=== PATIENT | female | born 1990 | race Caucasian/White ===

== ENCOUNTER 2016-10-27 09:31 | Emergency (ER) | payer OTHER ==
[~2016-10-27] VITALS: Ht 175.3 cm; Wt 72.6 kg
[~2016-10-27 09:31] MED LIST: ACET50TA GT; PERC7.5T12 PO; PERCOCET FT
[2016-10-27 09:32] VITALS: BP 121/80
[2016-10-27] MEDS ORDERED: [UNRECOGNIZED DRUG - CODE] PO (09:46)
[2016-10-27] MEDS ORDERED: IBUP600T26 PO (10:34)
== END 2016-10-27 10:48 | disposition home or self-care (01) ==
LOC: M ED 10:19
DX: S62.306A Unspecified fracture of fifth metacarpal bone, right hand, initial encounter for closed fracture (principal); Y04.0XXA Assault by unarmed brawl or fight, initial encounter; Y92.019 Unspecified place in single-family (private) house as the place of occurrence of the external cause; Y93.9 Activity, unspecified; Y99.9 Unspecified external cause status; Z87.891 Personal history of nicotine dependence

== ENCOUNTER → 2018-02-03 | Outpatient (CLI) | payer OTHER ==
[2018-02-03 12:22] LABS: BASO % 0.2 % (0.0-1.0); EOS # 0.1 10^3/uL (0.0-0.50); EOS % 0.8 % (0.0-3.0); HEMATOCRIT 38.2 % (36.0-47.0); IMMATURE GRANULOCYTE % 0.3 % (0-3.0); LYMPH # 1.2 10^3/uL (1.5-6.5); LYMPH % 13.5 % (24.0-44.0); MEAN CORPUSCULAR VOLUME 91.2 fl (80.0-96.0); MONO # 0.6 10^3/uL (0.0-0.8); MONO % 6.5 % (0.0-5.0); NEUTROPHILS # 7.2 10^3/uL (1.8-7.7); NEUTROPHILS % 78.7 % (36.0-66.0); PLATELET COUNT, AUTOMATED 274 10^3/uL (150-450); RED BLOOD COUNT 4.19 10^6/uL (4.00-5.40); RED CELL DISTRIBUTION WIDTH 12.3 % (11.5-14.5); WHITE BLOOD COUNT 9.2 10^3/uL (4.0-10.0)
[2018-02-03 13:56] LABS: CHLAMYDIA DNA AMPLIFICATION NEGATIVE (NEGATIVE); GC DNA AMPLIFICATION NEGATIVE (NEGATIVE)
[2018-02-04 10:56] LABS: HBsAg Prenatal NEGATIVE (NEGATIVE); HIV 1&2 SCREEN CENTAUR NEGATIVE (NEGATIVE); RUBELLA IgG QUALITATIVE IMMUNE (IMMUNE)
[2018-02-04 10:56] LABS: HEPATITIS C VIRUS ABY INDEX 0.1 INDEX (<0.8)
== END ==
LOC: M LAB 10:39
DX: Z34.81 Encounter for supervision of other normal pregnancy, first trimester (principal); Z3A.08 8 weeks gestation of pregnancy
CPT/HCPCS: 86762

== ENCOUNTER → 2018-02-13 | Outpatient (REF) | payer OTHER ==
[2018-02-13 22:32] LABS: INFLUENZA A AMPLIFICATION POSITIVE (NEGATIVE); INFLUENZA B AMPLIFICATION NEGATIVE (NEGATIVE)
== END ==
LOC: M LAB REF 21:21
DX: J02.9 Acute pharyngitis, unspecified (principal)

== ENCOUNTER → 2018-03-03 | Outpatient (REF) | payer OTHER | LOC: M LAB REF 13:24 | DX: Z34.81 Encounter for supervision of other normal pregnancy, first trimester (principal); Z3A.00 Weeks of gestation of pregnancy not specified ==

== ENCOUNTER → 2018-04-16 | Outpatient (CLI) | payer MEDICAID, OTHER | LOC: M RAD 15:25 | DX: Z34.82 Encounter for supervision of other normal pregnancy, second trimester (principal); Z3A.19 19 weeks gestation of pregnancy | CPT/HCPCS: 76811 ==

== ENCOUNTER → 2018-05-27 | Outpatient (REF) | payer OTHER ==
[~2018-05-27] MED LIST changes: +IBUP-1022 PO; +[UNRECOGNIZED DRUG - CODE] PO
[2018-05-27 13:38] LABS: INFLUENZA A AMPLIFICATION NEGATIVE (NEGATIVE); INFLUENZA B AMPLIFICATION NEGATIVE (NEGATIVE)
== END ==
LOC: M LAB REF 12:33
PROVIDERS: ATTEND Physician Assistant
DX: R50.9 Fever, unspecified (principal)

== ENCOUNTER → 2018-06-02 | Outpatient (CLI) | payer OTHER ==
[2018-06-02 12:48] LABS: HEMATOCRIT 34.2 % (36.0-47.0); HEMOGLOBIN 11.3 g/dl (12.0-15.5); MEAN CORPUSCULAR HEMOGLOBIN 31.3 pg (27.0-33.0); MEAN CORPUSCULAR VOLUME 94.7 fl (80.0-96.0); PLATELET COUNT, AUTOMATED 239 10^3/uL (150-450); RED BLOOD COUNT 3.61 10^6/uL (4.00-5.40); WHITE BLOOD COUNT 9.2 10^3/uL (4.0-10.0)
== END ==
LOC: M LAB 11:03
PROVIDERS: ATTEND Advanced Practice Midwife
DX: Z36.89 Encounter for other specified antenatal screening (principal)

== ENCOUNTER → 2018-06-03 | Outpatient (CLI) | payer MEDICAID, OTHER ==
--- NOTE | 2018-06-04 01:44 | REP ---
Clinical: Anatomical evaluation. Comparison: 04/16/2018 . Findings: Examination demonstrates a single live intrauterine in breech presentation. motion is identified by technologist. Placenta is noted anterior and grade grade 1 without evidence for placenta previa or abruption. Amniotic fluid volume is normal. Cervix measures 4.3 cm in length and appears closed. No evidence for nuchal cord. Gestational age by LMP 25 weeks 4 days with FRAN 09/12/2018 . Gestational age by current measurements 25 weeks 5-day with FRAN is 09/11/2018 . FHR equals 141 beats per minute. Estimated weight 853 grams ( 48th percentile). Anatomical assessment demonstrates normal structures including cranium, choroid plexus, cavum, cerebellum/posterior fossa, facial features, lungs, four-chamber heart/ventricular outflow tracts, diaphragm, stomach, cord insertion/three-vessel cord, kidneys/bladder, spine, and lower extremities. Impression: 1. Single live intrauterine in breech presentation demonstrating appropriate interval growth. 2. In conjunction with prior examination anatomical assessment is complete and normal. Electronically Signed by Faheem Melton MD 06/04/2018 01:37 A
== END ==
LOC: M RAD 15:27
PROVIDERS: ATTEND Advanced Practice Midwife
DX: O32.1XX0 Maternal care for breech presentation, not applicable or unspecified (principal); Z36.89 Encounter for other specified antenatal screening; Z3A.25 25 weeks gestation of pregnancy

== ENCOUNTER → 2018-06-29 | Outpatient (CLI) | payer OTHER | LOC: M LAB 08:47 | PROVIDERS: ATTEND Advanced Practice Midwife | DX: Z34.82 Encounter for supervision of other normal pregnancy, second trimester (principal) ==

== ENCOUNTER → 2018-08-11 | Outpatient (REF) | payer OTHER | LOC: M LAB REF 17:06 | PROVIDERS: ATTEND Advanced Practice Midwife | DX: Z34.83 Encounter for supervision of other normal pregnancy, third trimester (principal); Z3A.00 Weeks of gestation of pregnancy not specified ==

== ENCOUNTER 2018-09-04 05:33 | Inpatient (IN) | payer OTHER ==
[~2018-09-04] VITALS: Ht 175.3 cm; Wt 81.0 kg
[2018-09-04] VITALS (7 sets, daily range): BP systolic 105–121; BP diastolic 54–77
[~2018-09-04 05:33] MED LIST changes: -ACET50TA GT; +ASPI1TAB77 PO; +MAPA500T17 GT; +OXYC1TAB23 FT; -PERCOCET FT; -[UNRECOGNIZED DRUG - CODE] PO
[2018-09-04] MEDS ORDERED: BICITRA 30ML SOLN UDC PO ONE (06:00)
[2018-09-04] MEDS ORDERED: LR 1,000 ML IV ONE (06:00)
[2018-09-04 06:46] LABS: HEMATOCRIT 31.2 % (36.0-47.0); HEMOGLOBIN 10.1 g/dl (12.0-15.5); MEAN CORPUSCULAR HEMOGLOBIN 27.1 pg (27.0-33.0); MEAN CORPUSCULAR HGB CONC 32.4 g/dl (32.0-36.5); MEAN CORPUSCULAR VOLUME 83.6 fl (80.0-96.0); PLATELET COUNT, AUTOMATED 263 10^3/uL (150-450); RED BLOOD COUNT 3.73 10^6/uL (4.00-5.40); WHITE BLOOD COUNT 8.8 10^3/uL (4.0-10.0)
[2018-09-04] MEDS ORDERED: LR 1,000 ML IV SCH ×2 (07:00→08:54)
[2018-09-04] MEDS ORDERED: ONDANSETRON 4MG/2ML VIAL (J2405) As Ordered ONE (07:16)
[2018-09-04] MEDS ORDERED: MORPHINE PRES-FREE INJ 10 MG/10 ML VIAL (J2274) As Ordered ONE (07:16)
[2018-09-04] MEDS ORDERED: dexameTHASONE 4 MG/ML 1ML VIAL (J1100) As Ordered ONE (07:16)
[2018-09-04] MEDS ORDERED: KETOROLAC 60 MG/2 ML VIAL (J1885) As Ordered ONE (07:16)
[2018-09-04] MEDS ORDERED: OXYTOCIN INJ 10 UNITS/ML VIAL (J2590) As Ordered ONE (07:16)
[2018-09-04] MEDS ORDERED: NALBUPHINE HCL 10 MG/ML AMP (J2300) IV PRN ×2 (07:51→09:15)
[2018-09-04] MEDS ORDERED: METOCLOPRAMIDE INJ 10MG/2ML VIAL (J2765) IV PRN (07:51)
[2018-09-04] MEDS ORDERED: diphenhydrAMINE INJ 50MG/ML VIAL (J1200) IV PRN (07:51)
[2018-09-04] MEDS ORDERED: ONDANSETRON 4MG/2ML VIAL (J2405) IV PRN ×3 (07:51→09:15)
[2018-09-04] MEDS ORDERED: NALOXONE INJ 0.4 MG/1 ML VIAL (J2310) IV PRN ×2 (07:51)
[2018-09-04] MEDS ORDERED: BUPIVACAINE/DEXTROSE 0.75% 2 ML AMP As Ordered ONE (08:07)
[2018-09-04] MEDS ORDERED: ePHEDrine SULFATE 25 MG/5 ML(5MG/ML) SYRINGE As Ordered ONE (08:35)
[2018-09-04] MEDS ORDERED: PHENYLephrine HCL 500 MCG/5 ML (100MCG/ML) SYRINGE (J2370) As Ordered ONE (08:35)
[2018-09-04] MEDS ORDERED: OXYTOCIN DRIP 30 UNITS in APPROPRIATE DILUENT 1 EA IV SCH (08:54)
--- NOTE | 2018-09-04 08:59 | NUR ---
Operative Note Date of procedure: 09/04/2018 Procedure: Repeat low-transverse section Anesthesia: Spinal with Duramorph Preoperative diagnosis: 39+ weeks gestation, history of prior low transverse section Postoperative diagnosis: Same as preoperative Indication: Prior low transverse section, declining trial of labor after Primary surgeon: Raimundo Allen D.O., Julia Reyes Cooperer: Francis Mcqueen MD FACOG (essential for surgical site exposure and assistance with delivery through the hysterotomy) Estimated blood loss:500 ml IV fluids administered: 1500 ml crystalloid Drains: Stout catheter. Urine output: 150 ml data: Apgars 9 and 9. Birthweight 4040g, 8lbs 15oz.. Preoperative/prophylactic antibiotics: Ancef 2 g IV (given within 30 minutes prior to surgical start time). Intraoperative findings: Normal uterus and bilateral adnexa/ovaries. Cephalic presentation. Specimen(s): none Procedure: The patient was counseled and consented on the risks, benefits, indications and alternatives of the procedure. Informed consent was obtained and placed in the c cat. She was taken to the operating room with an IV running. She was placed on the operating table. Spinal anesthesia was administered without any difficulty and found to be adequate. She was placed in the dorsal supine position with a leftward tilt. Sequential compression devices were placed on the lower extremities. A Stout catheter was placed under sterile conditions. She was sterilely prepped and draped. A surgical timeout was performed per protocol. Spinal anesthesia was again found to be adequate. Using the 10 blade a Pfannenstiel incision was performed. The 10 blade was used to dissect down to the level of the rectus sheath fascia. The rectus sheath fas emma was incised at the midline, and the fascial incision was extended with Veras scissors. Amy clamps were used to grasp the superior and inferior aspect of the fascial incision and the rectus muscle bellies were dissected off sharply and bluntly. The midline was identified and the rectus muscle bellies were manually . The peritoneum was identified and clamped with hemostats and elevated. The peritoneum was then incised with Metzenbaum scissors. Entry into the intraperitoneal cavity was achieved. The peritoneal opening was extended with manual stretch . There was good visualization of both the bladder and the lower uterine segment. The Mobius retractor was placed. The vesicouterine peritoneum was dissected with Metzenbaum scissors and blunt dissection. A low transverse uterine incision was made with a new 10 blade. The hysterotomy was extended with manual stretch. The amniotic sac was protruding and then artificially ruptured. Clear amniotic fluid was noted. The baby's head delivered through the hysterotomy with ease. The remainder of the body delivered with ease. The cord was doubly clamped and cut and the baby was handed off to awaiting care. See data above. Cord blood was obtained. The placenta was manually removed and noted to be fully intact. The uterus was exteriorized. The intrauterine cavity was cleared of all clot and debris with a laparotomy sponge. The hysterotomy was closed with 0 Vicryl in running, locked fashion. A second imbricating closure was performed over the initial layer closure using 0 Vicryl. The hysterotomy was noted to be hemostatic. The posterior cul-de-sac was irrigated and cleared of all clot and debris. The uterus was replaced back into the abdomen. The paracolic gutters were cleared of all clot and debris with damp laparotomy sponges. The hysterotomy is reinspected and noted to be hemostatic. Sponge, needle and instrument counts were correct. The peritoneum was closed with 3-0 Vicryl in running fashion. The rectus muscle bellies were reapproximated with 3-0 Vicryl with a series of interrupted sutures. The rectus muscle bellies were noted to be hemostatic. The fascia was closed with 0 Vicryl in running fashion. Sponge, needle and instrument counts were again correct. The subcutaneous layer was irrigated. Small subcutaneous bleeders were cauterized with Bovie. The subcutaneous layer was reapproximated with 3-0 Vicryl in running fashion. The skin was closed with 3-0 Monocryl in subcuticular fashion. A bandage was placed over the closed incision. The final sponge, instrument and needle count was correct. She tolerated the entire procedure very well. She was transferred to the PACU in good and stable condition. Dr. Raimundo Allen D.O., F.Yudy.[email or web address].Victor Manuel.G
[2018-09-04] MEDS: PRENATAL VITAMINS CHEWABLE TABLET PO SCH (09:00)
[2018-09-04] MEDS ORDERED: PERCOCET 5MG/325MG TAB PO PRN (09:00)
[2018-09-04] MEDS ORDERED: RHOGAM 300 MCG (1500 IU) INJ (J2790) IM SCH (09:00)
[2018-09-04] MEDS ORDERED: PROMETHAZINE 25 MG TAB PO PRN (09:00)
[2018-09-04] MEDS: DOCUSATE SODIUM 100 MG CAP PO SCH ×2 (09:00→21:28)
[2018-09-04] MEDS ORDERED: MEASLES,MUMPS,RUBELLA VACCINE INJ (MMR-II) (90707) SC SCH (09:00)
[2018-09-04] MEDS ORDERED: IBUP80TA PO (09:01)
[2018-09-04] MEDS ORDERED: PERCOCET PO (09:01)
[2018-09-04] MEDS ORDERED: OXYTOCIN 30 UNITS IN 0.9% NaCl 500ML IV BAG (J2590) As Ordered ONE (09:14)
[2018-09-04] MEDS ORDERED: fentaNYL 100 MCG/2 ML INJECTION (J3010) IV PRN (09:15)
[2018-09-04 09:38] LABS: AMPHETAMINES URINE REFLEX NEGATIVE (NEGATIVE); BARBITURATES URINE REFLEX NEGATIVE (NEGATIVE); BENZODIAZEPINES URINE REFLEX NEGATIVE (NEGATIVE); CANNABINOIDS URINE REFLEX NEGATIVE (NEGATIVE); COCAINE METABOLITE URINE REFLE NEGATIVE (NEGATIVE); METHADONE URINE REFLEX NEGATIVE (NEGATIVE); OPIATES URINE REFLEX NEGATIVE (NEGATIVE); PHENCYCLIDINE URINE REFLEX NEGATIVE (NEGATIVE)
[2018-09-04] MEDS: KETOROLAC 30 MG/ML VIAL (J1885) IV SCH ×2 (14:59→21:28)
[2018-09-05] MEDS: KETOROLAC 30 MG/ML VIAL (J1885) IV SCH (02:54)
[2018-09-05 02:57] VITALS: BP 110/56
[2018-09-05 06:00] VITALS: BP 91/52
--- NOTE | 2018-09-05 07:01 | IPNPDOC ---
Text Note Date of Service The patient was seen on 09/05/18. NOTE PO #1 Feels well. Adequate pain management. Voiding VSS, afebrile, normotensive Fundus firm, NT Dressing intact Lochia rubra light without odor Routine care. Anticipate D/C in am VS,Fishbone, I+O VS, Fishbone, I+O Vital Signs Date Time Temp Pulse Resp B/P (MAP) Pulse Ox O2 Delivery O2 Flow Rate FiO2 09/05/18 06:00 97.4 75 17 91/52 (65) 09/05/18 02:57 98 I&O- Last 24 Hours up to 6 AM 09/05/18 06:00 Intake Total 2150 ml Output Total 1950 ml Balance 200 ml Shalini Olivares CNM Sep 05, 2018 07:01
[2018-09-05 07:21] LABS: HEMATOCRIT 25.3 % (36.0-47.0); MEAN CORPUSCULAR HEMOGLOBIN 27.3 pg (27.0-33.0); MEAN CORPUSCULAR VOLUME 85.2 fl (80.0-96.0); PLATELET COUNT, AUTOMATED 208 10^3/uL (150-450); RED BLOOD COUNT 2.97 10^6/uL (4.00-5.40); WHITE BLOOD COUNT 11.8 10^3/uL (4.0-10.0)
[2018-09-05 08:18] LABS: HEMOGLOBIN 8.1 g/dl (12.0-15.5)
[2018-09-05] MEDS: DOCUSATE SODIUM 100 MG CAP PO SCH ×2 (09:31→20:46)
[2018-09-05] MEDS: PRENATAL VITAMINS CHEWABLE TABLET PO SCH (09:31)
[2018-09-05] MEDS: PERCOCET 5MG/325MG TAB PO PRN ×3 (09:32→18:52)
[2018-09-05 10:25] VITALS: BP 117/68
[2018-09-05] MEDS: IBUPROFEN 800 MG TAB PO SCH ×2 (11:34→18:53)
[2018-09-05 14:20] VITALS: BP 110/61
[2018-09-05 21:58] VITALS: BP 97/54
[2018-09-06 01:50] VITALS: BP 93/50
[2018-09-06] MEDS: IBUPROFEN 800 MG TAB PO SCH ×2 (03:26→11:41)
[2018-09-06 05:58] VITALS: BP 99/54
[2018-09-06] MEDS ORDERED: COLA100C5 PO (08:15)
[2018-09-06] MEDS: PRENATAL VITAMINS CHEWABLE TABLET PO SCH (08:30)
[2018-09-06] MEDS: PERCOCET 5MG/325MG TAB PO PRN (08:31)
[2018-09-06] MEDS: DOCUSATE SODIUM 100 MG CAP PO SCH (08:31)
--- NOTE | 2018-09-06 09:58 | NUR ---
Discharge Summary Date of admission: 09/04/18 Date of discharge: 09/06/18 Admitting diagnosis: 39+1 weeks, h/o LTCS x 2, declining TOLAC Discharge diagnosis: Status post elective repeat low transverse section. Single, liveborn delivered via . Discharge Summary: 28 year-old G2 now P2. She was admitted on 09/04/18 at 39+ weeks EGA for a scheduled elective repeat low transverse section. The delivery was uncomplicated. The patient's intraoperative and postoperative courses were uncomplicated. By postoperative day #2, the patient was meeting all discharge criteria. Her pain was well controlled on oral pain meds. She was ambulating without assistance, voiding spontaneously, tolerating a regular diet, and her lochia/bleeding was minimal. Physical exam on date of discharge: Vitals: normotensive, normal HR, afebrile Heart: regular rate and rhythm with no murmurs, gallops, rubs. Lungs: clear to auscultation bilaterally, no wheezes, crackles, rales, ronchi Abd: soft, non-distended, appropriately tender. Normoactive bowel sounds. Incision: clean, dry, intact without surrounding erythema or induration. Ext: non-edematous, non-tender, negative Jose Antonio's sign bilaterally Preoperative Hgb/Hct: 10.1/31.2 Postoperative Hgb/Hct: 8.1/25.3 Assessment/Plan: 28 year-old G2 now P2 status post repeat low transverse delivery on 09/04/18 now postoperative day #2. Hemodynamically stable, afebrile, with good pain control. Meeting all discharge criteria. -Routine infectious, fever, pain, and bleeding precautions reviewed -Surgical wound/incisional care / precautions reviewed. -Discharge medications: Percocet, Motrin, Colace. -Outpatient follow up in 1-2 weeks for a routine incision / postoperative check. Dr. Raimundo Allen, DO, FACOG
== END 2018-09-06 12:00 | disposition home or self-care (01) | DRG 540 ==
LOC: M LDI 05:33 → M OBS 10:43
PROVIDERS: ADMIT Obstetrics & Gynecology; ATTEND Obstetrics & Gynecology
PROC: 10D00Z1 Extraction of Products of Conception, Low, Open Approach (ICD-10-PCS; principal; 2018-09-04 07:30)
DX: O34.211 Maternal care for low transverse scar from previous cesarean delivery (principal); Z37.0 Single live birth; Z3A.39 39 weeks gestation of pregnancy

== ENCOUNTER → 2018-11-16 | Outpatient (CLI) | payer OTHER ==
[~2018-11-16] MED LIST changes: +COLA100C5 PO; +IBUP80TA PO; +KETO10TAB PO; +PERCOCET PO
--- NOTE | 2018-11-16 17:11 | REP ---
THYROID ULTRASOUND: Real-time sonographic evaluation of the thyroid performed. Both lobes are somewhat enlarged, right lobe measuring 5.8 x 1.6 x 1.9 cm and left lobe 5.9 x 3.0 x 2.5 cm. Dominant palpable lump on the left corresponds to a cyst in the mid aspect of the left lobe with areas of irregular wall thickening. Contents are anechoic and the cyst measures 3.4 x 2.8 x 2.4 cm. Adjacent smaller cyst measures 1.2 x 0.6 x 0.7 cm. A solid nodule in the upper pole measures 5 x 3 x 4 mm and lower pole 6 x 4 x 5 mm. On the right, a solid nodule in the upper pole measures 1.1 x 0.4 x 0.7 cm and another more inferiorly measures 9 x 4 x 6 mm. There is a cyst in the right lobe measuring 1.5 x 1.0 x 1.1 cm. IMPRESSION: Palpable lump on the left corresponds to a cyst in the mid aspect of the left lobe of the thyroid with areas of wall thickening, maximum diameter is 3.4 cm. There are other smaller cysts and nodules bilaterally as discussed above. Electronically Signed by Mike Greene MD 11/17/2018 11:41 A
== END ==
LOC: M RAD 16:19
PROVIDERS: ATTEND Physician Assistant Medical
DX: R22.9 Localized swelling, mass and lump, unspecified (principal)

== ENCOUNTER → 2018-11-25 | Outpatient (CLI) | payer OTHER ==
[~2018-11-25] MED LIST changes: -KETO10TAB PO
[2018-11-25 15:35] LABS: FREE THYROXINE INDEX 3.7 % (1.3-4.8); THYROID STIMULATING HORMONE 1.56 uIU/ML (0.358-3.740); THYROXINE (T4) 12.4 UG/DL (4.5-12.0)
== END ==
LOC: M LAB 14:33
PROVIDERS: ATTEND Otolaryngology
DX: E04.9 Nontoxic goiter, unspecified (principal)

== ENCOUNTER → 2018-12-18 | Outpatient (REF) | payer OTHER | LOC: M LAB REF 13:55 | PROVIDERS: ATTEND Otolaryngology | DX: E04.9 Nontoxic goiter, unspecified (principal) ==

== ENCOUNTER 2019-02-21 08:34 | Emergency (ER) | payer OTHER ==
[~2019-02-21] VITALS: Ht 175.3 cm; Wt 72.1 kg
[2019-02-21 08:35] VITALS: BP 110/77
[2019-02-21] MEDS ORDERED: KETOROLAC 60 MG/2 ML VIAL (J1885) IM ONE (09:30)
[2019-02-21] MEDS ORDERED: ACETAMINOPHEN 325 MG TAB PO ONE (09:30)
--- NOTE | 2019-02-21 10:01 | REP ---
Right ankle four views : There is no fracture or dislocation. Mineralization and joint spaces are normal. There are no calcifications or foreign bodies. Impression: Negative right ankle . Electronically Signed by Mike Farr MD 02/21/2019 09:52 A
[2019-02-21] MEDS ORDERED: KETO10TAB PO (10:07)
== END 2019-02-21 10:15 | disposition home or self-care (01) ==
LOC: M ED 08:34
DX: S93.411A Sprain of calcaneofibular ligament of right ankle, initial encounter (principal); X50.0XXA Overexertion from strenuous movement or load, initial encounter; Y93.41 Activity, dancing; Y92.511 Restaurant or cafe as the place of occurrence of the external cause
CPT/HCPCS: 73610; 96372; 99284; J1885

== ENCOUNTER → 2019-02-22 | Outpatient (REF) | payer OTHER ==
[~2019-02-22] MED LIST changes: +KETO10TAB PO
== END ==
LOC: M LAB REF 17:37
PROVIDERS: ATTEND Obstetrics & Gynecology
DX: Z12.4 Encounter for screening for malignant neoplasm of cervix (principal)

== ENCOUNTER → 2019-08-06 | Outpatient (REF) | payer OTHER ==
[2019-08-06 19:02] LABS: INFLUENZA A AMPLIFICATION NEGATIVE (NEGATIVE); INFLUENZA B AMPLIFICATION NEGATIVE (NEGATIVE)
== END ==
LOC: M LAB REF 18:22
PROVIDERS: ATTEND Physician Assistant
DX: J11.1 Influenza due to unidentified influenza virus with other respiratory manifestations (principal)

== ENCOUNTER → 2020-05-14 | Outpatient (CLI) | payer OTHER ==
[2020-05-14 12:29] LABS: BASO % 0.3 % (0.0-1.0); EOS # 0.1 10^3/uL (0.0-0.5); EOS % 0.9 % (0.0-3.0); HEMOGLOBIN 11.9 g/dl (12.0-15.5); LYMPH # 1.5 10^3/uL (1.5-5.0); LYMPH % 19.4 % (24.0-44.0); MEAN CORPUSCULAR HEMOGLOBIN 28.6 pg (27.0-33.0); MEAN CORPUSCULAR HGB CONC 32.2 g/dl (32.0-36.5); MEAN CORPUSCULAR VOLUME 88.9 fl (80.0-96.0); MONO # 0.6 10^3/uL (0.0-0.8); MONO % 7.5 % (0.0-5.0); NEUTROPHILS # 5.7 10^3/uL (1.5-8.5); NEUTROPHILS % 71.4 % (36.0-66.0); PLATELET COUNT, AUTOMATED 244 10^3/uL (150-450); RED BLOOD COUNT 4.16 10^6/uL (4.00-5.40)
[2020-05-14 13:57] LABS: CHLAMYDIA DNA AMPLIFICATION NEGATIVE (NEGATIVE); GC DNA AMPLIFICATION NEGATIVE (NEGATIVE)
[2020-05-15 10:42] LABS: HEPATITIS C VIRUS ABY INDEX 0.2 INDEX (<0.8); HIV 1&2 SCREEN CENTAUR NEGATIVE (NEGATIVE)
== END ==
LOC: M LAB 11:38
PROVIDERS: ATTEND Obstetrics & Gynecology
DX: O34.211 Maternal care for low transverse scar from previous cesarean delivery (principal)

== ENCOUNTER → 2020-07-03 | Outpatient (REF) | payer OTHER | LOC: M SFHCWAGY 15:14 | PROVIDERS: ATTEND Advanced Practice Midwife | DX: R30.0 Dysuria (principal) ==

== ENCOUNTER → 2020-08-08 | Outpatient (REF) | payer OTHER ==
[2020-08-08 14:15] LABS: HEMATOCRIT 33.4 % (36.0-47.0); HEMOGLOBIN 10.7 g/dl (12.0-15.5); MEAN CORPUSCULAR HEMOGLOBIN 29.2 pg (27.0-33.0); MEAN CORPUSCULAR VOLUME 91.3 fl (80.0-96.0); PLATELET COUNT, AUTOMATED 248 10^3/uL (150-450); RED BLOOD COUNT 3.66 10^6/uL (4.00-5.40); WHITE BLOOD COUNT 9.4 10^3/uL (4.0-10.0)
== END ==
LOC: M PLALAB 10:35
PROVIDERS: ATTEND Advanced Practice Midwife
DX: Z36.89 Encounter for other specified antenatal screening (principal); Z3A.23 23 weeks gestation of pregnancy

== ENCOUNTER → 2020-10-06 | Outpatient (REF) | payer OTHER ==
[~2020-10-06] MED LIST changes: +DOK1CAP7 PO
== END ==
LOC: M SFHCWAGY 16:53
PROVIDERS: ATTEND Obstetrics & Gynecology
DX: O34.211 Maternal care for low transverse scar from previous cesarean delivery (principal)
CPT/HCPCS: 87081; G0463

== ENCOUNTER → 2020-10-25 | Outpatient (CLI) | payer OTHER ==
[~2020-10-25] MED LIST changes: -DOK1CAP7 PO
== END ==
LOC: M LABSMTC 09:34
PROVIDERS: ATTEND Anesthesiology
DX: Z01.818 Encounter for other preprocedural examination (principal); Z11.52 Encounter for screening for COVID-19